=== PATIENT | female | born 1965 | race Caucasian/White ===

== ENCOUNTER 2025-02-27 19:09 | Emergency (ER) | payer BC, SELFPAY ==
[2025-02-27 19:11] VITALS: BP 168/101
[2025-02-27 19:30] LABS: Hematocrit 45.4 % (37.0-47.0); Hemoglobin 14.9 g/dL (12.0-16.0); Mean Corp Hgb Conc. 32.8 g/dL (33.0-37.0); Mean Corpuscular Volume 88.0 fL (81.0-99.0); Nucleated Red Blood Cells % 0 %; Platelet Count 379 10^3/uL (130-400); Red Cell Dist. Width 14.5 % (11.5-14.5)
[2025-02-27 19:51] LABS: ALT (SGPT) 23 U/L (0-35); AST (SGOT) 22 U/L (14-36); Albumin 4.4 g/dl (3.5-5.0); Alkaline Phosphatase 69 U/L (38-126); Blood Urea Nitrogen 21 mg/dl (7-17); Calcium 10.0 mg/dl (8.4-10.2); Carbon Dioxide 31 mmol/L (22-30); Chloride 102 mmol/L (98-107); Glucose 113 mg/dl (70-99); Lipase 232 U/L (23-300); Potassium 4.5 mmol/L (3.5-5.1); Sodium 137 mmol/L (135-145); Total Protein 7.7 g/dl (6.3-8.2); eGFR > 60.00
[2025-02-27 21:31] VITALS: BP 151/97
[2025-02-27 21:33] VITALS: BMI 36.3
[2025-02-27] MEDS: TYLENOL 650 MG PO (21:39)
--- NOTE | 2025-02-27 21:53 | ED.GENMED ---
History of Present Illness
General
Chief Complaint: Abnormal Lab Value
Source: patient
Exam Limitations: none
Time Seen by Provider: 02/27/25 20:58
Nursing documentation reviewed up to this point in time: agreed with
History of Present Illness
History of Present Illness:
Patient with rare medical condition noticed polychondritis, where her cartilage can breakdown spontaneously without treatment, presents to ED secondary to persistent left-sided rib/abdominal pain over the past 4 days. Patient was evaluated by her
agricultural chemicals inspector at [facility] who did not feel that her symptoms were secondary to exacerbation of her underlying condition. After evaluation, blood work was ordered, which revealed increased white blood cell count. After going home,
patient states that she felt worse with overall weakness and increased left-sided pain. Patient spoke with on-call agricultural chemicals inspector who advised patient come to ED for an evaluation. Denies shortness of breath. Denies vomiting or diarrhea. Denies
direct trauma. Denies fever. Denies previous history of similar symptoms. Patient's surgical history includes cholecystectomy and appendectomy. Denies recent travel or surgery. Denies recent change in medications or diet. Patient is currently
on low-dose of prednisone.
Past History
Past History
ED Past Medical History: Asthma and Other (Endometriosis, ovarian cysts, kidney stones)
ED Past Surgical History: Appendectomy, Cholecystectomy, and Gynecological (Lap for Endometriosis, Ovarian cyst)
Social History
Tobacco: Non-smoker
Alcohol: None
Drug: None
Personal:
Living: with family
Employment: Employed
Family History
Family History: Unable to obtain
Review of Systems
Review of Systems
Allergies reviewed?: Yes
All Other Systems: ROS reviewed and negative except as documented in HPI and ROS
Constitutional: Reports no symptoms
Respiratory: Reports no symptoms
Cardiac: Denies diaphoresis or palpitations
ABD/GI: Reports abdominal pain
: Reports no symptoms
Musculoskeletal: Reports other (Rib pain)
Skin: Reports no symptoms; Denies rash
Neurological: Reports no symptoms
Phy Exam
Physical Exam
Physical Exam:
Physical Exam
General: mild painful distress, not acutely ill. afebrile
Head: nc/at. eomi
Neck: supple. no meningeal signs.
Heart: s1/s2 regular rate and rhythm, no murmur.
Lungs: no acute respiratory distress. clear bilaterally. mild left lower rib tenderness to palpation at level of rib#10-12, without deformity/erythema/ecchymosis.
Abdomen: normal bowel sounds. mild epigastric/LUQ tenderness to palpation
Neuro: alert and oriented x 3. no focal neurological deficits
Skin: no rash
Psychiatric: well kept. interactive and cooperative
Extremities: no edema. no calf tenderness.
Course
Orders/Labs/Results
Orders:
Orders
02/27/25 19:19
C-Reactive Protein Urgent
Comment: ADD ON
Complete Blood Count/With Diff Urgent
Comprehensive Metabolic Panel Urgent
Erythrocyte Sed Rate Urgent
Comment: ADD ON
Lipase Urgent
Monotest Urgent
Comment: ADD ON
02/27/25 21:33
CT Abd/pel Without Iv Or Oral Urgent
Comment:
Reason For Exam: LUQ pain
02/27/25 21:34
Acetaminophen [Tylenol] 650 mg PO NOW STA
02/27/25 21:59
Add On- LAB Urgent
Tests Added?: Monotest
Abnormal Lab Results
02/27/25
19:19
WBC 15.8 H 10^3/uL
(4.8-10.8)
MCHC 32.8 L g/dL
(33.0-37.0)
Abs Immat Gran (auto) 0.1 H 10^3/uL
(0-0.05)
Absolute Neuts (auto) 11.5 H 10^3/uL
(1.4-6.5)
Absolute Monos (auto) 0.7 H 10^3/uL
(0.1-0.6)
Carbon Dioxide 31 H mmol/L
(22-30)
BUN 21 H mg/dl
(7-17)
Glucose 113 H mg/dl
(70-99)
Monoscreen Positive A
(Negative)
02/27/25 19:19
02/27/25 19:19
Vital Signs
Initial and Last Documented VS:
Initial Vital Signs
Temp Pulse Resp BP Pulse Ox
98.6 F 93 20 168/101 100
02/27/25 19:11 02/27/25 19:11 02/27/25 19:11 02/27/25 19:11 02/27/25 19:11
Last Documented Vital Signs
Temp Pulse Resp BP Pulse Ox
98.7 F 75 18 136/73 94
02/27/25 21:31 02/27/25 22:50 02/27/25 22:50 02/27/25 22:50 02/27/25 22:50
MDM/Problems Addressed
MDM/Problems Addressed:
Due to severe IV dye allergy, CT abdomen pelvis ordered without contrast.
CT abd/pel report reviewed and discussed with the patient.
Monotest positive, which potentially explains patient's presenting symptoms. As such, patient will be discharged home in stable condition with recommendation to discuss with her agricultural chemicals inspector at [place] regarding her continual treatment plan.
*Pulse Oximetry
SaO2: 98
Oxygen Mode of Delivery: Room air
Patient hypoxic: no
*Critical Care Note
Total Time (30-74mins, 75-104mins- exclusive of procedures): Not Applicable
ED Attending Note
-
Portions of this chart may have been created with voice recognition software.� Occasional wrong word or��sound alike� substitutions may have occurred due to the inherent limitations of voice recognition software.
Discharge Plan
Departure
Patient Disposition: Home (Routine Discharge)
Date of Disposition: 02/27/25
Time of Disposition: 22:41
Patient with high blood pressure during this ER visit?: Yes
Condition: Good
Discharge Problem:
Mononucleosis
Instructions: Mononucleosis
Prescriptions:
No Action
cetirizine 10 MG tablet
10 mg PO PRN
ibuprofen 800 MG tablet
800 mg PO Q6HPRN PRN (Reason: pain) Qty: 14 0RF
cyclobenzaprine 10 MG tablet
10 mg PO TIDPRN PRN (Reason: muscle spasm) Qty: 12 0RF
ibuprofen 600 MG tablet
600 mg PO Q6H Qty: 30 0RF
Referrals:
NONE,* [Family Provider, Internal Medicine]
Activity Restrictions/Additional Instructions:
As discussed, please follow-up with your agricultural chemicals inspector for further evaluation and treatment.
Interventions
Interventions:
*Risk Screen - Suicide Last Done: 02/27/25 19:11
*General Assessment Last Done: 02/27/25 19:11
*Neglect/Abuse Screening Last Done: 02/27/25 19:11
*ED- Fall Risk Assessment Last Done: 02/27/25 21:34
*ED COVID-19 Vaccine History Last Done: 02/27/25 21:34
*Nursing Disposition Last Done: 02/27/25 22:54
Discharge Date and Time
Discharge Date/Time: 02/27/25 22:55
Print Language: VINCENTIAN
[2025-02-27 22:50] VITALS: BP 136/73
[2025-02-27 23:06] LABS: C-Reactive Protein < 5.00 mg/L (0.0-10.00)
== END 2025-02-27 22:55 | disposition home or self-care (01) ==
LOC: EMR 19:09
PROVIDERS: Student in an Organized Health Care Education/Training Program; EMERGENCY PHYSICIAN Emergency Medicine
DX: B27.90 Infectious mononucleosis, unspecified without complication (principal); M94.8X9 Other specified disorders of cartilage, unspecified sites; J45.909 Unspecified asthma, uncomplicated; N80.9 Endometriosis, unspecified; Z87.442 Personal history of urinary calculi; Z90.49 Acquired absence of other specified parts of digestive tract
CPT/HCPCS: 99284; 74176; 80053; 83690; 85025; 85652; 86140; 86308

== ENCOUNTER 2025-03-09 13:32 | Emergency (ER) | payer BC, SELFPAY ==
[2025-03-09 13:41] VITALS: BP 181/121
[2025-03-09] MEDS: NEURONTIN 300 MG PO (15:30)
[2025-03-09 15:35] VITALS: BP 137/95
--- NOTE | 2025-03-09 17:00 | ED.GENMED ---
History of Present Illness
General
Chief Complaint: Generalized Pain
Source: patient
Exam Limitations: none
Time Seen by Provider: 03/09/25 14:24
Nursing documentation reviewed up to this point in time: agreed with
History of Present Illness
History of Present Illness:
see MDM
Past History
Past History
ED Past Medical History: Asthma and Other (Endometriosis, ovarian cysts, kidney stones)
ED Past Surgical History: Appendectomy, Cholecystectomy, and Gynecological (Lap for Endometriosis, Ovarian cyst)
Social History
Tobacco: Non-smoker
Alcohol: None
Drug: None
Personal:
Living: with family
Employment: Employed
Family History
Family History: Unable to obtain
Review of Systems
Review of Systems
Allergies reviewed?: Yes
All Other Systems: Not applicable
Phy Exam
Physical Exam
Physical Exam:
GENERAL: Alert , in no apparent distress
CARDIAC: Regular rate and rhythm .
LUNGS: Clear breath sounds bilaterally, no acute respiratory distress, no wheezes/rales/rhonchi
ABDOMEN: Soft, without focal tenderness, no r/g, no cvat, normal bowel sounds
NEUROLOGICAL: Alert and oriented, no focal neuro deficits
SKIN: Warm and dry, skin intact.
pt has scabbed over lesions to her L back and L flank/upper abdominal region under her breast; no surrounding cellutliis
PSYCH: Normal and appropriate interaction.
Course
Orders/Labs/Results
Orders:
Orders
03/09/25 15:25
Gabapentin [Neurontin] 300 mg PO NOW STA
Vital Signs
Initial and Last Documented VS:
Initial Vital Signs
Temp Pulse Resp BP Pulse Ox
36.7 C 93 18 181/121 97
03/09/25 13:41 03/09/25 13:41 03/09/25 13:41 03/09/25 13:41 03/09/25 13:41
Last Documented Vital Signs
Temp Pulse Resp BP Pulse Ox
36.7 C 85 16 137/95 94
03/09/25 13:41 03/09/25 15:33 03/09/25 15:33 03/09/25 15:35 03/09/25 15:33
MDM/Problems Addressed
Differential Diagnosis Includes:
see MDM
MDM/Problems Addressed:
Note:
CHIEF COMPLAINT(S)
Rash and pain diagnosed as shingles.
HISTORY OF PRESENT ILLNESS
The patient is a 59-year-old female who presents with a rash and associated pain, diagnosed as shingles. The symptoms initially began approximately one week ago, with a rash developing last Monday. The patient tried to manage the pain herself
before seeking medical attention at an urgent care center, where she was prescribed valacyclovir at one gram three times daily and steroids. However, she has been unable to take the prescribed dosage due to stomach issues. Instead, she has been
taking a lower dose of 20 milligrams of prednisone daily.
The patient also mentioned an allergy to opiates, having experienced hives and vomiting with previous encounters. Due to her underlying relapsing polychondritis (RP) and past intolerance to various medications, the patient is cautious about pain
management and has been using gabapentin for nerve pain. She initially self-administered a higher dose of 1,200 milligrams daily but was advised to reduce it to 300 milligrams three times daily by the attending physician.
SOCIAL DETERMINANTS AFFECTING HEALTH
The patient reported significant stress related to familial responsibilities, including caring for her grandchild while her [id number] underwent emergency surgery. This lack of sleep and attendant stress may have contributed to an exacerbation
of her symptoms.
ALLERGIES
The patient has a documented history of allergies to various opiates, including Darvocet, Percocet, and others, experiencing hives and vomiting. She also reports a reaction to ketorolac (Toradol) after prolonged use.
CHRONIC MEDICAL CONDITIONS SIGNIFICANTLY AFFECTING CARE
- Relapsing Polychondritis (RP)
- Intolerance or adverse reactions to multiple medications
SOCIAL HISTORY
The patient adheres to a ketogenic diet, avoiding processed foods and consuming primarily fermented vegetables and meats. She reported significant improvements in her kidney function and inflammation markers with this dietary change.
MEDICATIONS
- Valacyclovir: one gram three times daily
- Prednisone: 20 milligrams daily (despite prescribed 60 milligrams due to stomach sensitivity)
- Gabapentin: Initially 1,200 milligrams daily; adjusted to 300 milligrams three times daily
REVIEW OF SYSTEMS
- Dermatological: Rash (shingles)
- Neurological: Nerve pain
-
- Musculoskeletal: No new joint or muscle pain reported outside of existing RP symptoms
PROBLEM LIST
Acute:
- Shingles with rash and significant nerve pain
Chronic:
- Relapsing Polychondritis
- History of medication allergies and intolerances
PLAN
1. Continue valacyclovir as prescribed for shingles.
2. pt already is opn steroids, taking prednisone 20 milligrams daily for 7 days. discuss with primary care provider or mechanical sound technician for long-term management.
3. Prescribe gabapentin at 300 milligrams three times daily, with a seven-day supply, and advise follow-up with mechanical sound technician for further pain management planning.
4. Educate patient on gradual tapering of gabapentin to avoid withdrawal or adverse effects.
5. Advise continuation of ketogenic diet and stress management techniques to reduce flare-ups of underlying conditions.
DIFFERENTIAL DIAGNOSIS
The Differential Diagnosis includes, in no particular order and is not limited to:
1. Herpes Zoster (Shingles)
2. Relapsing Polychondritis Flare
3. Medication-Induced Rash
4. Allergic Reaction
5. Erythema Multiforme
6. Dermatitis Herpetiformis
7. Toxicodendron Dermatitis (e.g., Poison Meghan)
8. Cellulitis
9. Insect Bite Reaction
59 y/o F with h/o autoimmune disease not chronically on steroids
here with painful shingles rash diagnosed > 1 week ago
already on valacyclovir an dprednisone and was given gabapentin which she increased on her own to 1100 mg daily without specific instructions to do so, now requesting refill
she lainey tto where they checked her renal fxn to be sure she didn't do any damage with that high of adose which was normal and sent her here
pt doesn't tolerate other pain medications and is asking for lower dose of gabapentin to help with this pain
she tolerates it well and it does not cause SE
willl recommend she do 300 mg TID for now an dshe can speak with her rheum or PCP regarding taper.
bp imrpoved
*Pulse Oximetry
SaO2: 94
Oxygen Mode of Delivery: Room air
Patient hypoxic: no (97)
*Critical Care Note
Total Time (30-74mins, 75-104mins- exclusive of procedures): Not Applicable
ED Attending Note
-
Portions of this chart may have been created with voice recognition software.� Occasional wrong word or��sound alike� substitutions may have occurred due to the inherent limitations of voice recognition software.
Discharge Plan
Departure
Patient Disposition: Home (Routine Discharge)
Date of Disposition: 03/09/25
Time of Disposition: 16:01
Patient with high blood pressure during this ER visit?: Yes
Condition: Fair
Covid-19: Not Applicable
Discharge Problem:
Acute pain associated with herpes zoster, Medication refill
Instructions: Neuropathic pain, Shingles
Prescriptions:
New
gabapentin 100 mg capsule
300 mg PO TID 7 Days Qty: 63 0RF
No Action
cetirizine 10 MG tablet
10 mg PO PRN
ibuprofen 800 MG tablet
800 mg PO Q6HPRN PRN (Reason: pain) Qty: 14 0RF
cyclobenzaprine 10 MG tablet
10 mg PO TIDPRN PRN (Reason: muscle spasm) Qty: 12 0RF
ibuprofen 600 MG tablet
600 mg PO Q6H Qty: 30 0RF
Referrals:
UNKNOWN - PT DOES,NOT KNOW [Family Provider]
Activity Restrictions/Additional Instructions:
Take the gabapentin 3 times a day 300 mg for now, you can call your family doctor about how to taper this. Usually you will lower the morning dose or the afternoon dose and keep the evening dose higher. Return for any concerns.
Interventions
Interventions:
*Risk Screen - Suicide Last Done: 03/09/25 13:41
*General Assessment Last Done: 03/09/25 13:41
*Neglect/Abuse Screening Last Done: 03/09/25 13:41
*ED- Fall Risk Assessment Last Done: 03/09/25 16:10
*ED COVID-19 Vaccine History Last Done: 03/09/25 13:49
*Nursing Disposition Last Done: 03/09/25 16:10
Discharge Date and Time
Discharge Date/Time: 03/09/25 16:10
Print Language: EAST TIMOR[place]
== END 2025-03-09 16:10 | disposition home or self-care (01) ==
LOC: EMR 13:32
PROVIDERS: EMERGENCY PHYSICIAN Emergency Medicine
DX: B02.9 Zoster without complications (principal); D89.89 Other specified disorders involving the immune mechanism, not elsewhere classified; Z76.0 Encounter for issue of repeat prescription; J45.909 Unspecified asthma, uncomplicated; Z88.5 Allergy status to narcotic agent; Z88.8 Allergy status to other drugs, medicaments and biological substances
CPT/HCPCS: 99283